=== PATIENT | male | born 1940 | race African-American/Black ===

== ENCOUNTER 2017-02-28 08:20 | Day surgery (SDC) | payer OTHER ==
[2017-02-25 10:16] VITALS: BMI 29.0
[~2017-02-28 08:20] MED LIST: LEVOFLOXACIN 500 MG PREMIX BAG IVPB ONE
[2017-02-28] MEDS ORDERED: MIDAZOLAM HCL 2 MG/2 ML SINGLE DOSE VIAL ONE (09:34)
[2017-02-28] MEDS ORDERED: LEVOFLOXACIN 500 MG PREMIX BAG IVPB ONE (09:40)
[2017-02-28] MEDS ORDERED: LEVOFLOXACIN 500 MG IVPB 100 ML IVPB ONE (09:47)
--- NOTE | 2017-02-28 10:32 | OP ---
Operative Note - Note: Operative Date: 02/28/17 Pre-Operative Diagnosis: right renal stone Operation: right eswl Findings: [id number] right renal stone in lower pole Post-Operative Diagnosis: Same as Pre-op Surgeon: Darron Jett Anesthesia: General Operative Report Dictated: Yes
--- NOTE | 2017-02-28 10:41 | OP ---
DATE OF OPERATION: 02/28/2017 PREOPERATIVE DIAGNOSIS: Right renal stone. POSTOPERATIVE DIAGNOSIS: Right renal stone. PROCEDURE: Right extracorporeal shock-wave lithotripsy. ATTENDING: Darron Willis MD ANESTHESIA: General. DESCRIPTION OF PROCEDURE: The patient was brought in the operating room and placed in supine position on the operating room table. Ultrasonography and fluoroscopy were performed. An 8-mm x 6-mm right lower pole stone was identified. General anesthesia and preoperative IV antibiotics consisting of Levaquin was administered. The patient was under anesthesia, and the extracorporeal shock-wave lithotripsy was performed. Then 2500 impulses at 20 J of power was administered to the stone with excellent fragmentation under real time ultrasonography and fluoroscopy. No complications were noted. The patient tolerated the procedure very well. DISPOSITION: To the recovery room. Leyda [id number]
[2017-02-28 11:07] VITALS: TEMP 97.8
[2017-02-28] MEDS ORDERED: ONDANSETRON 4 MG/2 ML VIAL ONE (12:19)
[2017-02-28 13:10] VITALS: BP 127/66; PULSE 62
== END 2017-02-28 13:13 | disposition home or self-care (01) ==
LOC: JASU-SURG 08:20
PROVIDERS: ATTEND Urology
PROC: 0TF3XZZ Fragmentation in Right Kidney Pelvis, External Approach (ICD-10-PCS; principal; 2017-02-28 09:45)
DX: N20.0 Calculus of kidney (principal)
CPT/HCPCS: 94760

== ENCOUNTER → 2022-08-19 | Day surgery (SDC) | payer OTHER | END | disposition home or self-care (01) | LOC: JRADIR 10:28 | PROVIDERS: ATTEND Physical Medicine & Rehabilitation | PROC: BQ30YZZ Magnetic Resonance Imaging (MRI) of Right Hip using Other Contrast (ICD-10-PCS; principal; 2022-08-19) | DX: M25.551 Pain in right hip (principal) | CPT/HCPCS: 27093; 73525-TC-FY; 73722-TC; 77002-TC-FY ==

== ENCOUNTER 2022-12-16 19:15 | Inpatient (IN) | payer OTHER ==
[2022-12-16] MEDS ORDERED: SODIUM CHLORIDE 0.9% 500 ML INFUS.BAG IV ONE ×2 (19:50→23:27)
[2022-12-16] MEDS ORDERED: ACETAMINOPHEN 1000 MG/100 ML BAG IVPB ONE (19:56)
[2022-12-16 21:04] LABS: BASO % 0.5 % (0-2.0); EOS % 3.8 % (0-4.5); HEMATOCRIT 33.7 % (35.4-49); HEMOGLOBIN 11.2 GM/dL (11.7-16.9); LYMPH % 20.2 % (8-40); MCH 26.7 pg (25.7-33.7); MCHC 33.3 g/dl (32.0-35.9); MEAN CELL VOLUME 80.1 fl (80-96); MONO % 9.1 % (3.8-10.2); NEUT % 66.4 % (42.8-82.8); PLATELET COUNT 246 10^3/uL (134-434); RBC 4.21 M/mm3 (4.00-5.60); RDW 15.5 % (11.9-15.9); WHITE BLOOD COUNT 6.3 K/mm3 (4.0-10.0)
[2022-12-16] MEDS ORDERED: ACETAMINOPHEN INJECTION 100 ML IVPB ONE (21:05)
[2022-12-16 21:09] LABS: INR 1.19 (0.83-1.09); PROTHROMBIN TIME (PATIENT) 13.8 SEC (9.7-13.0)
[2022-12-16 21:26] LABS: CHLORIDE 96 mmol/L (98-107); SODIUM 128 mmol/L (136-145)
[2022-12-16 21:28] LABS: CALCIUM 8.7 mg/dL (8.5-10.1); GLUCOSE,RANDOM 381 mg/dL (74-106)
[2022-12-16 21:29] LABS: ALBUMIN 2.7 g/dl (3.4-5.0); BLOOD UREA NITROGEN 54.5 mg/dL (7-18); CO2 25 mmol/L (21-32); MAGNESIUM 2.6 mg/dL (1.8-2.4)
[2022-12-16 21:32] LABS: CREATININE 2.9 mg/dL (0.55-1.3); PHOSPHOROUS 5.7 mg/dL (2.5-4.9); SGOT/AST 70 U/L (15-37); SGPT/ALT 31 U/L (13-61)
[2022-12-16 21:33] LABS: BILIRUBIN,TOTAL 0.7 mg/dL (0.2-1)
[2022-12-16 21:34] LABS: TOT PROT 7.5 g/dl (6.4-8.2)
[2022-12-16 21:35] LABS: ALK PHOS 113 U/L (45-117); ANION GAP 7 MMOL/L (8-16)
[2022-12-16] MEDS ORDERED: ASPIRIN 81 MG CHEWABLE TABLETS PO ONE (21:41)
[2022-12-16] MEDS ORDERED: ASPIRIN 81 MG CHEWABLE TABLETS ONE (22:13)
[2022-12-16 22:38] LABS: VENOUS BASE EXCESS 0.3 mmol/L (-2-2); VENOUS O2 SATURATION 67.8 % (70-80); VENOUS PCO2 43.4 mmHg (38-52); VENOUS PH 7.387 (7.310-7.410)
[2022-12-16 22:59] LABS: CALCIUM 8.5 mg/dL (8.5-10.1)
[2022-12-16 23:00] LABS: ALBUMIN 2.7 g/dl (3.4-5.0); BLOOD UREA NITROGEN 51.7 mg/dL (7-18)
[2022-12-16 23:03] LABS: CREATININE 2.7 mg/dL (0.55-1.3)
[2022-12-16 23:05] LABS: BILIRUBIN,TOTAL 0.3 mg/dL (0.2-1); TOT PROT 6.8 g/dl (6.4-8.2)
[2022-12-17 00:24] LABS: PH,URINE 5.5 (5.0-8.0); URINE APPEARANCE CLEAR; URINE BILIRUBIN NEGATIVE (NEGATIVE); URINE COLOR YELLOW; URINE GLUCOSE (UA) 3+ (NEGATIVE); URINE KETONE NEGATIVE (NEGATIVE); URINE LEUK ESTERASE NEGATIVE (NEGATIVE); URINE NITRITE NEGATIVE (NEGATIVE); URINE PROTEIN NEGATIVE (NEGATIVE); URINE UROBILINOGEN 0.2 mg/dL (0.2-1.0)
[2022-12-17] MEDS ORDERED: HEPARIN NA (PORCINE) 5,000 UNITS/ML 1ML VIAL IVPUSH ONE (02:52)
[2022-12-17] MEDS ORDERED: HEPARIN NA (PORCINE) 5,000 UNITS/ML 1ML VIAL ONE (03:07)
[2022-12-17 05:49] LABS: BASO % 1.1 % (0-2.0); EOS % 4.6 % (0-4.5); HEMATOCRIT 33.1 % (35.4-49); LYMPH % 27.2 % (8-40); MCH 26.5 pg (25.7-33.7); MCHC 33.2 g/dl (32.0-35.9); MEAN CELL VOLUME 79.9 fl (80-96); MEAN PLT VOLUME 8.2 fl (7.5-11.1); MONO % 8.2 % (3.8-10.2); NEUT % 58.9 % (42.8-82.8); PLATELET COUNT 221 10^3/uL (134-434); RBC 4.14 M/mm3 (4.00-5.60); RDW 15.7 % (11.9-15.9); WHITE BLOOD COUNT 5.9 K/mm3 (4.0-10.0)
[2022-12-17] MEDS ORDERED: HEPARIN NA (PORCINE) 5,000 UNITS/ML 1ML VIAL IVPUSH PRN ×2 (05:54)
[2022-12-17 06:10] LABS: BLOOD UREA NITROGEN 51.9 mg/dL (7-18); CALCIUM 8.7 mg/dL (8.5-10.1); MAGNESIUM 2.4 mg/dL (1.8-2.4)
[2022-12-17 06:13] LABS: CREATININE 2.6 mg/dL (0.55-1.3); PHOSPHOROUS 5.3 mg/dL (2.5-4.9)
[2022-12-17] MEDS: HEPARIN INFUSION - 25,000 UNITS/500 ML INFUS.BAG IVPB SCH ×2 (06:15→20:00)
[2022-12-17] MEDS: INSULIN SLIDING SCALE (NOVOLOG) 1 VIAL SQ SCH ×4 (10:20→21:46)
[2022-12-17] MEDS: ACETAMINOPHEN 325 MG TABLET (FP) PO PRN ×2 (11:00→18:35)
[2022-12-17] MEDS ORDERED: PATIENT'S OWN MEDICATION (NON-FORMULARY) (Hydrocodone/Acetaminophen 1 TAB Tablet) PO PRN (11:34)
[2022-12-17] MEDS ORDERED: INSULIN (NOVOLOG) ASPART 100 UNITS/ML 10ML VIAL ONE ×2 (11:37→21:48)
[2022-12-17] MEDS: PANTOPRAZOLE 40 MG TABLET PO SCH ×2 (13:35→21:46)
[2022-12-17] MEDS ORDERED: SODIUM CHLORIDE 500 ML IV STA (13:55)
[2022-12-17] MEDS: SODIUM CHLORIDE 1,000 ML IV SCH (15:31)
[2022-12-17] MEDS: GABAPENTIN 300 MG CAPSULE PO SCH (21:46)
[2022-12-17] MEDS: ATORVASTATIN CA 20 MG TABLET (FP) PO SCH (21:46)
[2022-12-17] MEDS ORDERED: CARVEDILOL 25 MG TABLET (FP) PO SCH (22:00)
[2022-12-18] MEDS: ACETAMINOPHEN 325 MG TABLET (FP) PO PRN ×3 (04:25→22:13)
[2022-12-18 07:36] LABS: BASO % 0.5 % (0-2.0); EOS % 7.8 % (0-4.5); HEMATOCRIT 29.2 % (35.4-49); HEMOGLOBIN 9.7 GM/dL (11.7-16.9); LYMPH % 32.2 % (8-40); MCH 26.8 pg (25.7-33.7); MCHC 33.4 g/dl (32.0-35.9); MEAN CELL VOLUME 80.3 fl (80-96); MEAN PLT VOLUME 8.4 fl (7.5-11.1); MONO % 9.7 % (3.8-10.2); NEUT % 49.8 % (42.8-82.8); PLATELET COUNT 219 10^3/uL (134-434); RBC 3.63 M/mm3 (4.00-5.60); RDW 15.2 % (11.9-15.9)
[2022-12-18 07:57] LABS: CALCIUM 7.8 mg/dL (8.5-10.1)
[2022-12-18 07:58] LABS: ALBUMIN 2.2 g/dl (3.4-5.0)
[2022-12-18 08:01] LABS: CREATININE 2.4 mg/dL (0.55-1.3)
[2022-12-18 08:03] LABS: BILIRUBIN,TOTAL 0.5 mg/dL (0.2-1); TOT PROT 5.8 g/dl (6.4-8.2)
[2022-12-18] MEDS: INSULIN SLIDING SCALE (NOVOLOG) 1 VIAL SQ SCH ×4 (08:04→21:41)
[2022-12-18] MEDS: HEPARIN INFUSION - 25,000 UNITS/500 ML INFUS.BAG IVPB SCH ×2 (08:05→10:08)
[2022-12-18] MEDS: INSULIN (LEVEMIR) 100 UNITS/ML UNITS SQ SCH (08:09)
[2022-12-18] MEDS: TAMSULOSIN HCL 0.4 MG CAP PO SCH (09:40)
[2022-12-18] MEDS: PANTOPRAZOLE 40 MG TABLET PO SCH ×2 (09:40→21:32)
[2022-12-18] MEDS: DOCUSATE SODIUM 100 MG CAPSULE (FP) PO PRN (09:40)
[2022-12-18] MEDS: FUROSEMIDE 40 MG TABLET (FP) PO SCH (09:40)
[2022-12-18] MEDS ORDERED: PANTOPRAZOLE 40 MG TABLET PO SCH (10:00)
[2022-12-18] MEDS ORDERED: INSULIN (NOVOLOG) ASPART 100 UNITS/ML 10ML VIAL ONE ×2 (11:40→21:41)
[2022-12-18] MEDS: SODIUM CHLORIDE 1,000 ML IV SCH (14:18)
[2022-12-18] MEDS: ATORVASTATIN CA 20 MG TABLET (FP) PO SCH (21:32)
[2022-12-18] MEDS: GABAPENTIN 300 MG CAPSULE PO SCH (21:32)
[2022-12-19] MEDS: HEPARIN INFUSION - 25,000 UNITS/500 ML INFUS.BAG IVPB SCH ×2 (06:27→17:47)
[2022-12-19] MEDS: INSULIN SLIDING SCALE (NOVOLOG) 1 VIAL SQ SCH ×4 (06:29→21:39)
[2022-12-19] MEDS: INSULIN (LEVEMIR) 100 UNITS/ML UNITS SQ SCH (06:51)
[2022-12-19 07:55] LABS: HEMATOCRIT 28.7 % (35.4-49); HEMOGLOBIN 9.5 GM/dL (11.7-16.9); MCH 26.6 pg (25.7-33.7); MEAN CELL VOLUME 80.7 fl (80-96); MEAN PLT VOLUME 8.4 fl (7.5-11.1); PLATELET COUNT 207 10^3/uL (134-434); RBC 3.56 M/mm3 (4.00-5.60); RDW 15.4 % (11.9-15.9); WHITE BLOOD COUNT 4.2 K/mm3 (4.0-10.0)
[2022-12-19] MEDS: ACETAMINOPHEN 325 MG TABLET (FP) PO PRN ×2 (09:19→19:51)
[2022-12-19] MEDS: TAMSULOSIN HCL 0.4 MG CAP PO SCH (09:19)
[2022-12-19] MEDS: PANTOPRAZOLE 40 MG TABLET PO SCH ×2 (09:20→21:39)
[2022-12-19] MEDS: FUROSEMIDE 40 MG TABLET (FP) PO SCH (09:20)
[2022-12-19] MEDS ORDERED: POLYETHYLENE GLYCOL (HEALTHYLAX) 3350 17 GM PACKET PO SCH (10:00)
[2022-12-19] MEDS ORDERED: BISACODYL 10 MG SUPP.RECT PR ONE (10:26)
[2022-12-19] MEDS: DOCUSATE SODIUM 100 MG CAPSULE (FP) PO PRN (17:17)
[2022-12-19] MEDS: SODIUM CHLORIDE 1,000 ML IV SCH (17:17)
[2022-12-19] MEDS ORDERED: INSULIN (NOVOLOG) ASPART 100 UNITS/ML 10ML VIAL ONE (21:31)
[2022-12-19] MEDS: POLYETHYLENE GLYCOL (HEALTHYLAX) 3350 17 GM PACKET PO SCH (21:38)
[2022-12-19] MEDS: ATORVASTATIN CA 20 MG TABLET (FP) PO SCH (21:39)
[2022-12-19] MEDS: GABAPENTIN 300 MG CAPSULE PO SCH (21:39)
[2022-12-20] MEDS: ACETAMINOPHEN 325 MG TABLET (FP) PO PRN ×3 (05:58→21:42)
[2022-12-20] MEDS: HEPARIN INFUSION - 25,000 UNITS/500 ML INFUS.BAG IVPB SCH (06:04)
[2022-12-20] MEDS: INSULIN SLIDING SCALE (NOVOLOG) 1 VIAL SQ SCH ×4 (06:04→22:38)
[2022-12-20] MEDS: INSULIN (LEVEMIR) 100 UNITS/ML UNITS SQ SCH (06:05)
[2022-12-20 07:48] LABS: HEMATOCRIT 27.8 % (35.4-49); HEMOGLOBIN 9.4 GM/dL (11.7-16.9); MCH 27.1 pg (25.7-33.7); MCHC 33.8 g/dl (32.0-35.9); MEAN CELL VOLUME 80.2 fl (80-96); MEAN PLT VOLUME 8.1 fl (7.5-11.1); PLATELET COUNT 218 10^3/uL (134-434); RBC 3.46 M/mm3 (4.00-5.60); RDW 15.1 % (11.9-15.9); WHITE BLOOD COUNT 4.2 K/mm3 (4.0-10.0)
[2022-12-20 08:26] LABS: CALCIUM 8.2 mg/dL (8.5-10.1)
[2022-12-20 08:27] LABS: BLOOD UREA NITROGEN 29.2 mg/dL (7-18); MAGNESIUM 2.1 mg/dL (1.8-2.4)
[2022-12-20 08:30] LABS: CREATININE 1.9 mg/dL (0.55-1.3); PHOSPHOROUS 4.8 mg/dL (2.5-4.9)
[2022-12-20] MEDS: FUROSEMIDE 40 MG TABLET (FP) PO SCH (09:23)
[2022-12-20] MEDS: PANTOPRAZOLE 40 MG TABLET PO SCH ×2 (09:23→21:36)
[2022-12-20] MEDS: TAMSULOSIN HCL 0.4 MG CAP PO SCH (09:23)
[2022-12-20] MEDS: POLYETHYLENE GLYCOL (HEALTHYLAX) 3350 17 GM PACKET PO SCH ×2 (09:23→21:36)
[2022-12-20] MEDS ORDERED: SODIUM CHLORIDE 1,000 ML IV SCH (11:44)
[2022-12-20] MEDS: ATORVASTATIN CA 20 MG TABLET (FP) PO SCH (21:36)
[2022-12-20] MEDS: GABAPENTIN 300 MG CAPSULE PO SCH (21:41)
[2022-12-21] MEDS: ACETAMINOPHEN 325 MG TABLET (FP) PO PRN ×3 (05:50→16:24)
[2022-12-21] MEDS: INSULIN SLIDING SCALE (NOVOLOG) 1 VIAL SQ SCH ×4 (06:30→21:42)
[2022-12-21] MEDS: HEPARIN INFUSION - 25,000 UNITS/500 ML INFUS.BAG IVPB SCH (06:33)
[2022-12-21] MEDS: INSULIN (LEVEMIR) 100 UNITS/ML UNITS SQ SCH (06:50)
[2022-12-21 07:57] LABS: HEMATOCRIT 29.2 % (35.4-49); HEMOGLOBIN 9.9 GM/dL (11.7-16.9); MCHC 33.7 g/dl (32.0-35.9); MEAN CELL VOLUME 79.9 fl (80-96); MEAN PLT VOLUME 7.8 fl (7.5-11.1); PLATELET COUNT 225 10^3/uL (134-434); RBC 3.65 M/mm3 (4.00-5.60); RDW 15.7 % (11.9-15.9); WHITE BLOOD COUNT 3.5 K/mm3 (4.0-10.0)
[2022-12-21] MEDS: TAMSULOSIN HCL 0.4 MG CAP PO SCH (09:42)
[2022-12-21] MEDS: POLYETHYLENE GLYCOL (HEALTHYLAX) 3350 17 GM PACKET PO SCH ×2 (09:42→21:30)
[2022-12-21] MEDS: PANTOPRAZOLE 40 MG TABLET PO SCH ×2 (09:42→21:30)
[2022-12-21] MEDS: APIXABAN 5 MG TABLET PO SCH ×2 (09:42→21:30)
[2022-12-21] MEDS: TORSEMIDE 20 MG TABLET (FP) PO SCH (09:42)
[2022-12-21] MEDS: ATORVASTATIN CA 20 MG TABLET (FP) PO SCH (21:30)
[2022-12-21] MEDS: GABAPENTIN 300 MG CAPSULE PO SCH (21:30)
[2022-12-22] MEDS: ACETAMINOPHEN 325 MG TABLET (FP) PO PRN ×3 (05:58→22:23)
[2022-12-22] MEDS: INSULIN SLIDING SCALE (NOVOLOG) 1 VIAL SQ SCH ×4 (06:08→22:19)
[2022-12-22] MEDS: INSULIN (LEVEMIR) 100 UNITS/ML UNITS SQ SCH (06:08)
[2022-12-22 07:27] LABS: HEMATOCRIT 31.4 % (35.4-49); HEMOGLOBIN 10.4 GM/dL (11.7-16.9); MCH 26.6 pg (25.7-33.7); MCHC 33.2 g/dl (32.0-35.9); MEAN PLT VOLUME 7.9 fl (7.5-11.1); PLATELET COUNT 230 10^3/uL (134-434); RBC 3.92 M/mm3 (4.00-5.60); RDW 15.3 % (11.9-15.9)
[2022-12-22 07:47] LABS: ALBUMIN 2.5 g/dl (3.4-5.0); BLOOD UREA NITROGEN 27.7 mg/dL (7-18); CALCIUM 8.5 mg/dL (8.5-10.1)
[2022-12-22 07:50] LABS: CREATININE 2.1 mg/dL (0.55-1.3)
[2022-12-22 07:52] LABS: BILIRUBIN,TOTAL 0.3 mg/dL (0.2-1); TOT PROT 6.5 g/dl (6.4-8.2)
[2022-12-22] MEDS: PANTOPRAZOLE 40 MG TABLET PO SCH ×2 (09:30→22:19)
[2022-12-22] MEDS: TORSEMIDE 20 MG TABLET (FP) PO SCH (09:30)
[2022-12-22] MEDS: POLYETHYLENE GLYCOL (HEALTHYLAX) 3350 17 GM PACKET PO SCH ×2 (09:30→22:19)
[2022-12-22] MEDS: TAMSULOSIN HCL 0.4 MG CAP PO SCH (09:30)
[2022-12-22] MEDS: APIXABAN 5 MG TABLET PO SCH ×2 (09:30→22:19)
[2022-12-22] MEDS ORDERED: INSULIN (NOVOLOG) ASPART 100 UNITS/ML 10ML VIAL ONE (22:17)
[2022-12-22] MEDS: GABAPENTIN 300 MG CAPSULE PO SCH (22:19)
[2022-12-22] MEDS: ATORVASTATIN CA 20 MG TABLET (FP) PO SCH (22:19)
[2022-12-23] MEDS: INSULIN (LEVEMIR) 100 UNITS/ML UNITS SQ SCH (06:45)
[2022-12-23] MEDS: INSULIN SLIDING SCALE (NOVOLOG) 1 VIAL SQ SCH ×3 (06:45→16:30)
[2022-12-23] MEDS: ACETAMINOPHEN 325 MG TABLET (FP) PO PRN ×2 (06:46→15:23)
[2022-12-23 08:12] LABS: HEMATOCRIT 31.1 % (35.4-49); HEMOGLOBIN 10.4 GM/dL (11.7-16.9); MCH 26.7 pg (25.7-33.7); MCHC 33.6 g/dl (32.0-35.9); MEAN CELL VOLUME 79.5 fl (80-96); MEAN PLT VOLUME 8.1 fl (7.5-11.1); PLATELET COUNT 246 10^3/uL (134-434); RBC 3.91 M/mm3 (4.00-5.60); RDW 15.3 % (11.9-15.9)
[2022-12-23] MEDS: TAMSULOSIN HCL 0.4 MG CAP PO SCH (08:38)
[2022-12-23] MEDS: TORSEMIDE 20 MG TABLET (FP) PO SCH (09:36)
[2022-12-23] MEDS: POLYETHYLENE GLYCOL (HEALTHYLAX) 3350 17 GM PACKET PO SCH (09:36)
[2022-12-23] MEDS: APIXABAN 5 MG TABLET PO SCH (09:39)
[2022-12-23] MEDS: PANTOPRAZOLE 40 MG TABLET PO SCH (09:40)
[2022-12-23] MEDS ORDERED: INSULIN (NOVOLOG) ASPART 100 UNITS/ML 10ML VIAL ONE (11:42)
[2022-12-23 15:50] VITALS: RESP 20
[2022-12-23 18:53] VITALS: BP 110/59; PULSE 64; TEMP 98.7
[2022-12-23 22:01] VITALS: BMI 26.9
== END 2022-12-23 19:30 | DRG 176 ==
LOC: JER 19:15 → JERBED 12-17 02:14 → J4W 12-17 07:55
PROVIDERS: ADMIT Internal Medicine; ATTEND Family Medicine
DX: I26.99 Other pulmonary embolism without acute cor pulmonale (principal); N17.9 Acute kidney failure, unspecified; J84.9 Interstitial pulmonary disease, unspecified; I24.8 Other forms of acute ischemic heart disease; C78.7 Secondary malignant neoplasm of liver and intrahepatic bile duct; C80.1 Malignant (primary) neoplasm, unspecified; K25.9 Gastric ulcer, unspecified as acute or chronic, without hemorrhage or perforation; N50.82 Scrotal pain; I27.29 Other secondary pulmonary hypertension; E78.5 Hyperlipidemia, unspecified; I10 Essential (primary) hypertension; E11.9 Type 2 diabetes mellitus without complications
CPT/HCPCS: 0241U-QW; 36415; 70450-TC; 71045-TC-FY; 71275-TC; 74176-TC; 76870-TC; 80048; 80053; 81003; 82105; 82378; 82803; 82962; 83036; 83605; 83735; 84100; 84153; 84484; 85025; 85027; 85610; 85730; 86140; 86301; 86850; 86900; 86901; 87040; 87086; 87186; 93005; 93010; 93306-TC; 93970-TC; 97116-GP; 97162-GP; 99291; J1644; Q9967

== ENCOUNTER 2023-02-07 04:43 | Day surgery (SDC) | payer OTHER ==
[2023-02-04 17:53] VITALS: BMI 28.1
[2023-02-07] MEDS ORDERED: PROPOFOL 20 ML ONE (09:50)
[2023-02-07] MEDS ORDERED: ONDANSETRON 4 MG/2 ML VIAL IVPUSH PRN (09:54)
[2023-02-07] MEDS ORDERED: LACTATED RINGERS SOLUTION 1,000 ML IV SCH (10:00)
[2023-02-07] MEDS ORDERED: ceFAZolin SODIUM 1 GM VIAL IVPB ONE (10:14)
[2023-02-07] MEDS ORDERED: LIDOCAINE 2%/EPINEPHRINE 1:100000 (50 ML MD VIAL) INF ONE ×2 (10:53→11:15)
[2023-02-07 13:27] VITALS: RESP 18
[2023-02-07] MEDS ORDERED: oxyCODONE HCL 5 MG TABLET ONE (14:21)
[2023-02-07] MEDS ORDERED: oxyCODONE HCL 5 MG TABLET PO PRN (14:45)
[2023-02-07 15:59] VITALS: BP 135/71; PULSE 68; TEMP 97.7
== END 2023-02-07 15:50 | disposition home or self-care (01) ==
LOC: JASU-SURG 04:43
PROVIDERS: ATTEND Urology
PROC: 0T7D0ZZ Dilation of Urethra, Open Approach (ICD-10-PCS; 2023-02-07)
PROC: 0T7D8ZZ Dilation of Urethra, Via Natural or Artificial Opening Endoscopic (ICD-10-PCS; principal; 2023-02-07 09:00)
DX: N47.2 Paraphimosis (principal); N47.8 Other disorders of prepuce; R31.9 Hematuria, unspecified
CPT/HCPCS: 82962; 94760